=== PATIENT | male | born 1945 | race Caucasian/White ===

== ENCOUNTER 2017-05-26 09:22 | Inpatient (IN) | payer OTHER ==
[~2017-05-26] VITALS: Ht 154.9 cm; Wt 121.7 kg
[2017-05-26 10:41] LABS: EOSINOPHIL (%) 0.1 % (0-5); HEMATOCRIT 50.3 % (38.0-50.0); IMMATURE GRANULOCYTE (%) 0.3 % (0.0-0.7); INSTRUMENT ABS NEUTROPHIL CT 7.9 K/uL; LYMPHOCYTE COUNT 0.7 K/uL (1.0-2.8); MCH 30.7 PG (29.0-34.0); MCHC 33.6 G/DL (30.0-36.0); MCV 91.3 FL (86-99); MONOCYTE (%) 6.1 % (3-12); MONOCYTE COUNT 0.6 K/uL (0-0.8); NEUTROPHIL (%) 85.8 % (45-76); NEUTROPHIL COUNT 7.9 K/uL (1.8-6.4); RBC DIS.WIDTH-CV 12.8 % (11.8-14.6); RBC DIS.WIDTH-SD 43.3 % (39-53); RED BLOOD COUNT 5.51 M/uL (4.00-5.50); WHITE BLOOD COUNT 9.2 K/uL (4.1-10.2)
[2017-05-26 10:44] LABS: CHLORIDE 106 mEq/L (99-109); POTASSIUM 5.3 mEq/L (3.7-5.4); SODIUM 140 mEq/L (136-147)
[2017-05-26 10:46] LABS: GLUCOSE 118 mg/dL (70-99)
[2017-05-26 10:47] LABS: ANION GAP 11 MEQ/L (2-14)
[2017-05-26 10:48] LABS: TOTAL BILIRUBIN 1.8 mg/dL (0.0-1.0)
[2017-05-26 10:50] LABS: ALKALINE PHOSPHATASE 145 IU/L (3-129); GFR ESTIMATE (CALCULATED) > 59 mL/min/
[2017-05-26 10:51] LABS: UREA NITROGEN (BUN) 23 mg/dL (9-23)
[2017-05-26 11:04] LABS: ADD MIUA? NO; BILIRUBIN NEGATIVE; BLOOD NEGATIVE; COLOR YELLOW ((YELLOW)); GLUCOSE (STRIP) NEGATIVE; KETONES NEGATIVE; LEUKOCYTES NEGATIVE; NITRITE NEGATIVE; PROTEIN (STRIP) NEGATIVE; SPECIFIC GRAVITY 1.014 (1.000-1.030)
[2017-05-26 11:19] LABS: LIPASE 1300 U/L (1.0-51.0)
[2017-05-26 11:24] LABS: IMM.PLATELET FRACTION 8.7 (1-7); MEAN PLAT.VOLUME 12.1 uM^3 (9.0-12.4); PLAT.SUFFICIENCY DECREASED; PLATELET COUNT UNABLE TO REPORT K/uL (156-360)
[2017-05-26] MEDS ORDERED: OMEPRAZOLE20 MG PO (12:37)
[2017-05-26] MEDS ORDERED: ATORVASTATIN CA40 MG PO (12:38)
[2017-05-26] MEDS ORDERED: LISINOPRIL-HCT1 EACH PO (12:38)
[2017-05-26] MEDS ORDERED: NABUMETONE500 MG PO (12:39)
[2017-05-26] MEDS ORDERED: TAMSULOSIN HCL0.4 MG PO (12:39)
[2017-05-26] MEDS ORDERED: LOPRESSOR25 MG PO (12:39)
[2017-05-26] MEDS ORDERED: ASPIR-LOW81 MG PO (12:40)
[2017-05-26] MEDS ORDERED: FLEXERIL10 MG PO (12:40)
[2017-05-26] MEDS ORDERED: MECLIZINE HCL25 MG PO (12:40)
[2017-05-26 17:46] VITALS: BP 114/67
[2017-05-26 23:38] VITALS: BP 111/67
[2017-05-27 03:45] VITALS: BP 129/75
[2017-05-27 05:59] LABS: INTER. NORMALIZED RATIO 1.2; PROTHROMBIN TIME 13.2 SEC (10.2-12.9)
[2017-05-27 06:02] LABS: PTT 30.2 SEC (25-37)
[2017-05-27 06:17] LABS: ALKALINE PHOSPHATASE 95 IU/L (3-129); ANION GAP 4 MEQ/L (2-14); CHLORIDE 105 MEQ/L (99-109); GFR ESTIMATE (CALCULATED) > 59 mL/min/; GLUCOSE 108 mg/dL (70-99); LIPASE 220 U/L (1.0-51.0); SAMPLE HEMOLYSIS CHECK 0; SAMPLE ICTERIC CHECK 0; SAMPLE LIPEMIA CHECK 0; SODIUM 142 MEQ/L (136-147); TOTAL BILIRUBIN 1.2 MG/DL (0.0-1.0); UREA NITROGEN (BUN) 22 mg/dL (9-23)
[2017-05-27 06:19] LABS: HEMATOCRIT 43.1 % (38.0-50.0); MCH 31.5 PG (29.0-34.0); MCHC 32.5 G/DL (30.0-36.0); RBC DIS.WIDTH-CV 13.4 % (11.8-14.6); RBC DIS.WIDTH-SD 48.3 % (39-53); RED BLOOD COUNT 4.45 M/uL (4.00-5.50); WHITE BLOOD COUNT 12.4 K/uL (4.1-10.2)
[2017-05-27 06:20] LABS: MCV 96.9 FL (86-99); MEAN PLAT.VOLUME 9.3 uM^3 (9.0-12.4); PLATELET COUNT 169 K/uL (156-360)
[2017-05-27 07:48] VITALS: BP 114/61
[2017-05-27 16:49] VITALS: BP 138/65
[2017-05-27 20:59] VITALS: BP 140/81
[2017-05-28 00:55] VITALS: BP 128/69
[2017-05-28 06:56] LABS: MCH 30.5 PG (29.0-34.0); MCV 95.6 FL (86-99); MEAN PLAT.VOLUME 8.8 uM^3 (9.0-12.4); PLATELET COUNT 140 K/uL (156-360); RBC DIS.WIDTH-CV 13.2 % (11.8-14.6); RBC DIS.WIDTH-SD 46.5 % (39-53); RED BLOOD COUNT 4.29 M/uL (4.00-5.50); WHITE BLOOD COUNT 9.4 K/uL (4.1-10.2)
[2017-05-28 08:05] LABS: ALKALINE PHOSPHATASE 72 IU/L (3-129); ANION GAP 8 MEQ/L (2-14); CHLORIDE 107 MEQ/L (99-109); GFR ESTIMATE (CALCULATED) > 59 mL/min/; GLUCOSE 80 mg/dL (70-99); POTASSIUM 3.9 MEQ/L (3.7-5.4); SAMPLE HEMOLYSIS CHECK 0; SAMPLE ICTERIC CHECK 0; SAMPLE LIPEMIA CHECK 0; SODIUM 144 MEQ/L (136-147); TOTAL BILIRUBIN 1.1 MG/DL (0.0-1.0); UREA NITROGEN (BUN) 25 mg/dL (9-23)
[2017-05-28 08:16] VITALS: BP 127/60
[2017-05-28 08:30] LABS: LIPASE 80 U/L (1.0-51.0)
[2017-05-28 15:52] VITALS: BP 135/74
[2017-05-28 23:50] VITALS: BP 162/82
[2017-05-29 06:15] LABS: HEMATOCRIT 38.4 % (38.0-50.0); MCH 31.5 PG (29.0-34.0); MCHC 33.1 G/DL (30.0-36.0); MCV 95.3 FL (86-99); MEAN PLAT.VOLUME 9.6 uM^3 (9.0-12.4); PLATELET COUNT 155 K/uL (156-360); RBC DIS.WIDTH-CV 13.2 % (11.8-14.6); RBC DIS.WIDTH-SD 46.3 % (39-53); RED BLOOD COUNT 4.03 M/uL (4.00-5.50)
[2017-05-29 06:34] LABS: ALKALINE PHOSPHATASE 64 IU/L (3-129); ANION GAP 5 MEQ/L (2-14); CHLORIDE 107 MEQ/L (99-109); GFR ESTIMATE (CALCULATED) > 59 mL/min/; GLUCOSE 89 mg/dL (70-99); POTASSIUM 3.8 MEQ/L (3.7-5.4); SAMPLE HEMOLYSIS CHECK 0; SAMPLE ICTERIC CHECK 0; SAMPLE LIPEMIA CHECK 0; SODIUM 143 MEQ/L (136-147); TOTAL BILIRUBIN 0.8 MG/DL (0.0-1.0); UREA NITROGEN (BUN) 16 mg/dL (9-23)
[2017-05-29 06:49] LABS: INTER. NORMALIZED RATIO 1.1; PROTHROMBIN TIME 11.7 SEC (10.2-12.9)
[2017-05-29 06:51] LABS: PTT 28.6 SEC (25-37)
[2017-05-29 07:41] VITALS: BP 134/74
[2017-05-29 15:24] VITALS: BP 148/78
[2017-05-29 20:20] VITALS: BP 155/77
[2017-05-29 23:56] VITALS: BP 153/75
[2017-05-30 04:19] VITALS: BP 115/54
[2017-05-30 06:08] LABS: HEMATOCRIT 38.9 % (38.0-50.0); MCH 30.3 PG (29.0-34.0); MCHC 32.1 G/DL (30.0-36.0); MCV 94.4 FL (86-99); MEAN PLAT.VOLUME 9.3 uM^3 (9.0-12.4); PLATELET COUNT 199 K/uL (156-360); RBC DIS.WIDTH-SD 45.3 % (39-53); RED BLOOD COUNT 4.12 M/uL (4.00-5.50)
[2017-05-30 06:40] LABS: ALKALINE PHOSPHATASE 56 IU/L (3-129); ANION GAP 7 MEQ/L (2-14); CHLORIDE 106 MEQ/L (99-109); GFR ESTIMATE (CALCULATED) > 59 mL/min/; GLUCOSE 118 mg/dL (70-99); SAMPLE HEMOLYSIS CHECK 0; SAMPLE ICTERIC CHECK 0; SAMPLE LIPEMIA CHECK 0; SODIUM 140 MEQ/L (136-147); TOTAL BILIRUBIN 0.9 MG/DL (0.0-1.0); UREA NITROGEN (BUN) 13 mg/dL (9-23)
[2017-05-30 07:42] VITALS: BP 154/74
[2017-05-30 11:09] VITALS: BP 162/80
[2017-05-30 15:17] VITALS: BP 151/71
[2017-05-30 19:33] VITALS: BP 150/77
[2017-05-30 23:54] VITALS: BP 145/87
[2017-05-31 03:32] VITALS: BP 136/80
[2017-05-31 06:45] LABS: ALKALINE PHOSPHATASE 51 IU/L (3-129); ANION GAP 11 MEQ/L (2-14); CHLORIDE 107 MEQ/L (99-109); GFR ESTIMATE (CALCULATED) 35 mL/min/; POTASSIUM 4.4 MEQ/L (3.7-5.4); SAMPLE HEMOLYSIS CHECK 0; SAMPLE ICTERIC CHECK 0; SAMPLE LIPEMIA CHECK 0; SODIUM 139 MEQ/L (136-147); TOTAL BILIRUBIN 0.9 MG/DL (0.0-1.0); UREA NITROGEN (BUN) 15 mg/dL (9-23)
[2017-05-31 06:46] LABS: GLUCOSE 84 mg/dL (70-99)
[2017-05-31 06:50] LABS: HEMATOCRIT 42.7 % (38.0-50.0); MCH 31.2 PG (29.0-34.0); MCHC 32.6 G/DL (30.0-36.0); RBC DIS.WIDTH-CV 13.2 % (11.8-14.6); RBC DIS.WIDTH-SD 47.2 % (39-53); RED BLOOD COUNT 4.45 M/uL (4.00-5.50); WHITE BLOOD COUNT 15.3 K/uL (4.1-10.2)
[2017-05-31 07:15] VITALS: BP 131/80
[2017-05-31 07:48] LABS: PLAT.SUFFICIENCY ADEQUATE
[2017-05-31 07:53] LABS: PLATELET COUNT 137 K/uL (156-360)
[2017-05-31 09:27] LABS: LIPASE 7 U/L (1.0-51.0)
[2017-05-31 11:11] VITALS: BP 139/78
[2017-05-31 11:38] LABS: ADD MIUA? YES; BILIRUBIN NEGATIVE; BLOOD MODERATE; COLOR YELLOW ((YELLOW)); GLUCOSE (STRIP) NEGATIVE; KETONES NEGATIVE; LEUKOCYTES NEGATIVE; NITRITE NEGATIVE; PROTEIN (STRIP) NEGATIVE; SPECIFIC GRAVITY 1.009 (1.000-1.030); UROBILINOGEN 0.2 MG/DL (0.2-1.0)
[2017-05-31 12:21] LABS: BACTERIA RARE /HPF; EPITHELIAL CELLS NONE SEEN /HPF; MUCUS TRACE /LPF; RED BLOOD CELLS 0-5 /HPF (0-5); UCUL ADDED? NO; WHITE BLOOD CELLS 0-5 /HPF (0-5)
[2017-05-31 16:06] VITALS: BP 155/80
[2017-05-31 20:01] VITALS: BP 147/77
[2017-06-01 00:16] VITALS: BP 142/86
[2017-06-01 03:36] VITALS: BP 158/87
[2017-06-01 06:42] LABS: ALKALINE PHOSPHATASE 48 IU/L (3-129); ANION GAP 7 MEQ/L (2-14); CHLORIDE 108 MEQ/L (99-109); GFR ESTIMATE (CALCULATED) 42 mL/min/; GLUCOSE 95 mg/dL (70-99); POTASSIUM 4.6 MEQ/L (3.7-5.4); SAMPLE HEMOLYSIS CHECK 0; SAMPLE ICTERIC CHECK 0; SAMPLE LIPEMIA CHECK 0; SODIUM 141 MEQ/L (136-147); TOTAL BILIRUBIN 0.8 MG/DL (0.0-1.0); UREA NITROGEN (BUN) 14 mg/dL (9-23)
[2017-06-01 06:44] LABS: HEMATOCRIT 37.4 % (38.0-50.0); MCH 30.4 PG (29.0-34.0); MCHC 31.8 G/DL (30.0-36.0); MCV 95.4 FL (86-99); MEAN PLAT.VOLUME 9.3 uM^3 (9.0-12.4); PLATELET COUNT 175 K/uL (156-360); RBC DIS.WIDTH-CV 13.3 % (11.8-14.6); RBC DIS.WIDTH-SD 46.7 % (39-53); RED BLOOD COUNT 3.92 M/uL (4.00-5.50); WHITE BLOOD COUNT 12.2 K/uL (4.1-10.2)
[2017-06-01 07:48] VITALS: BP 149/82
[2017-06-01 11:43] VITALS: BP 167/77
[2017-06-01] MEDS ORDERED: PERCOCET 5/31 TABLET PO (15:02)
[2017-06-01 16:05] VITALS: BP 154/78
[2017-06-02 01:01] VITALS: BP 160/84
[2017-06-02 07:01] LABS: HEMATOCRIT 37.4 % (38.0-50.0); MCHC 32.6 G/DL (30.0-36.0); MCV 94.9 FL (86-99); MEAN PLAT.VOLUME 9.3 uM^3 (9.0-12.4); PLATELET COUNT 193 K/uL (156-360); RBC DIS.WIDTH-CV 13.3 % (11.8-14.6); RBC DIS.WIDTH-SD 47.4 % (39-53); RED BLOOD COUNT 3.94 M/uL (4.00-5.50); WHITE BLOOD COUNT 10.6 K/uL (4.1-10.2)
[2017-06-02 07:29] LABS: ALKALINE PHOSPHATASE 53 IU/L (3-129); ANION GAP 11 MEQ/L (2-14); CHLORIDE 109 MEQ/L (99-109); GFR ESTIMATE (CALCULATED) > 59 mL/min/; GLUCOSE 93 mg/dL (70-99); POTASSIUM 3.9 MEQ/L (3.7-5.4); SAMPLE HEMOLYSIS CHECK 0; SAMPLE ICTERIC CHECK 0; SAMPLE LIPEMIA CHECK 0; SODIUM 142 MEQ/L (136-147); TOTAL BILIRUBIN 0.7 MG/DL (0.0-1.0); UREA NITROGEN (BUN) 12 mg/dL (9-23)
[2017-06-02 07:47] VITALS: BP 185/84
[2017-06-02 15:19] VITALS: BP 149/72
== END 2017-06-02 17:22 | disposition home or self-care (01) | DRG 415 ==
LOC: EME 09:22 → EDOF 12:52 → 5SOUTH 12:52 → ENRESERV 12:53 → 5SOUTH 17:22
PROVIDERS: Emergency Medicine; Internal Medicine; Internal Medicine Gastroenterology; Surgery
PROC: 0FC98ZZ Extirpation of Matter from Common Bile Duct, Via Natural or Artificial Opening Endoscopic (ICD-10-PCS; principal; 2017-05-27)
PROC: 0FT40ZZ Resection of Gallbladder, Open Approach (ICD-10-PCS; 2017-05-29)
PROC: BF101ZZ Fluoroscopy of Bile Ducts using Low Osmolar Contrast (ICD-10-PCS; 2017-05-29)
DX: K85.10 Biliary acute pancreatitis without necrosis or infection (principal); K80.64 Calculus of gallbladder and bile duct with chronic cholecystitis without obstruction; J98.11 Atelectasis; N17.9 Acute kidney failure, unspecified; N13.8 Other obstructive and reflux uropathy; Z68.43 Body mass index [BMI] 50.0-59.9, adult; K86.1 Other chronic pancreatitis; I71.4 Abdominal aortic aneurysm, without rupture; R09.02 Hypoxemia; Z96.653 Presence of artificial knee joint, bilateral; N40.1 Benign prostatic hyperplasia with lower urinary tract symptoms; I10 Essential (primary) hypertension; K21.9 Gastro-esophageal reflux disease without esophagitis; E78.5 Hyperlipidemia, unspecified; E66.01 Morbid (severe) obesity due to excess calories; N39.3 Stress incontinence (female) (male); F40.240 Claustrophobia; K82.8 Other specified diseases of gallbladder; E66.9 Obesity, unspecified; K57.30 Diverticulosis of large intestine without perforation or abscess without bleeding; M48.00 Spinal stenosis, site unspecified; M51.9 Unspecified thoracic, thoracolumbar and lumbosacral intervertebral disc disorder; I25.10 Atherosclerotic heart disease of native coronary artery without angina pectoris; D69.1 Qualitative platelet defects; D35.00 Benign neoplasm of unspecified adrenal gland; Z79.899 Other long term (current) drug therapy; Z87.442 Personal history of urinary calculi; Z79.1 Long term (current) use of non-steroidal anti-inflammatories (NSAID); Z87.891 Personal history of nicotine dependence; Z53.31 Laparoscopic surgical procedure converted to open procedure; Q89.9 Congenital malformation, unspecified
CPT/HCPCS: 71010; 74177; 74330; 76770; 78582; 80053; 81003; 83690; 83880; 85025; 85027; 85610; 85730; 87040; 87081; 88304; 93005; 93306; 93970; 94799; 99281; 99285; A9540; A9567; C1726; C1769; J0131; J0330; J0360; J1100; J1170; J1650; J2270; J2405; J2543; J2710; J3010; J3480; J7030; J7042; J7050; J7120; S0028